=== PATIENT | female | born 1945 | race Caucasian/White ===

== ENCOUNTER 2017-05-26 10:16 | Outpatient (CLI) | payer MEDICARE ==
--- NOTE | 2017-05-26 13:30 | RAD ---
BIPHASIC ESOPHAGRAM: Date: 05/26/17 HISTORY: Cervical dysphagia, esophageal stricture. FINDINGS: Swallowing was grossly normal. There was unobstructed flow of contrast through the esophagus and int o the stomach. A small hiatal hernia is present. No GE reflux demonstrated during Valsalva maneuver. No obstructing mass or diverticulum seen. A 12 mm tablet demonstrated stasis in the proximal thoracic esophagus. No significant stricture is s een distal to the tablet. No tertiary contractions seen. IMPRESSION: 1. Small hiatal hernia. 2. Stasis of the tablet in the proximal thoracic esophagus. POS: [facility]
== END 2017-05-26 10:17 | disposition home or self-care (01) ==
LOC: RAD 10:16
PROVIDERS: ATTEND Internal Medicine Gastroenterology
DX: K22.2 Esophageal obstruction (principal); R13.19 Other dysphagia; K44.9 Diaphragmatic hernia without obstruction or gangrene; K22.8 Other specified diseases of esophagus
CPT/HCPCS: 74220